=== PATIENT | male | born 1980 | race Caucasian/White ===

== ENCOUNTER 2020-04-01 03:35 | Emergency (ER) | payer OTHER ==
[2020-04-01] MEDS ORDERED: propofoL 0 ML ONE (04:00)
[2020-04-01] MEDS ORDERED: fentaNYL 100 MCG/2 ML SDV ONE ×4 (04:00→04:15)
[2020-04-01] MEDS ORDERED: fentaNYL 2500 MCG/50 ML SDV ONE (04:09)
[2020-04-01] MEDS ORDERED: Sodium Chloride 0.9% 250 ML ONE (04:09)
[2020-04-01] MEDS ORDERED: Etomidate 2 MG/ML 20 ML SDV IVPUSH ONE (04:15)
[2020-04-01] MEDS ORDERED: Succinylcholine 200 MG/10 ML MDV ONE (04:15)
[2020-04-01] MEDS ORDERED: Lidocaine 1% 10 ML MDV ONE (04:15)
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
[2020-04-01] MEDS ORDERED: fentaNYL 2,500 MCG in Sodium Chloride 0.9% 200 ML IV SCH (04:30)
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
[2020-04-01 07:33] VITALS: BP 107/45; PULSE 71
--- NOTE | 2020-04-01 08:28 | CT ---
CT cervical spine Technique: Multiple axial sections were obtained from above C1 inferiorly to the mid T3 level. Reconstructed coronal and sagittal images were obtained. Comparison: No prior cervical spine imaging is available. Findings: Fractures are seen within the base of the spinous process of C6. This fracture extends into the lamina on the left side at this level. Fracture is noted within the base of the spinous process of C7 which extends slightly into the lamina in two places. There is diffuse mucosal thickening within the ethmoid and maxillary sinuses. Endotracheal tube is seen coursing off the inferior edge of the film. On lung window settings there is diffuse increased density within both lungs presumably due to areas of pulmonary contusion. Vertebral body heights are maintained. No bony central or bony neural foraminal stenosis is seen. Slight scoliosis noted on the reconstructed AP view. Impression: 1. Fractures within the base of the spinous process of C6 and C7. Fractures extend into the lamina on the left side at both levels. 2. Diffuse increased density within both upper lung compatible with pulmonary contusions. 3. Other findings as noted above which are nonacute. Diagnostic code #5 I agree with preliminary report from [facility], finalized on 04/01/20, 6:33 AM SPECIALTY FOOD PRODUCTS SUPERVISOR
--- NOTE | 2020-04-01 08:38 | CT ---
CT chest Technique: Multiple axial sections through the chest were obtained. Intravenous contrast was utilized. Reconstructed coronal and sagittal images were obtained. Comparison: No prior chest imaging is available. Findings: Endotracheal tube is seen. Tip lies above the airam. Thoracic aorta shows no aneurysm. Small amount of venous air is noted which is felt to be incidental. Mediastinum shows no adenopathy. No pericardial thickening is seen. Diffuse parenchymal change is noted within both upper lungs and lesser change within both lower lungs as well as within the lingula and right middle lobe. There is a small air cavity being seen within the right middle lobe measuring approximately 1.3 cm in size which is compatible with a small air cyst. No pneumothorax is seen. Small pleural bleb is noted within the right upper chest. No pleural effusions are seen. No definite acute osseous abnormality is appreciated. Impression: 1. Diffuse increased density within both sides of the chest as noted above most likely representing diffuse pulmonary lesions. Satisfactory position of endotracheal tube is noted. 2. Small air cyst within the right middle lobe. 3. Small subpleural bleb within the right lung apex. 4. No findings of pneumothorax or pleural effusion. Diagnostic code #5 I agree with preliminary report from [facility], finalized on 04/01/20, 6:[address] SUPPORT ANALYST CT abdomen and pelvis Technique: Multiple axial sections were obtained from above the dome of the diaphragm inferiorly through the pubic symphysis. Intravenous contrast was utilized. Delayed images were also obtained through the abdomen and pelvis. Reconstructed coronal and sagittal images were obtained. Comparison: No prior abdominal or pelvic CT is available. Findings: Patients arms are below the chest which causes some artifact. Liver shows no focal abnormality. Spleen appears within normal limits. Abdominal aorta shows no aneurysm. Branch vessels of the abdominal aorta show no discrete abnormality and are likely small due to patient's hypotensive nature. Abnormality is noted within the right adrenal gland which is nonspecific but given the patient's age is most likely due to an adrenal adenoma. This measures approximately 3.2 cm in size. Left adrenal gland is normal. Pancreas is within normal limits. There is a full-thickness renal laceration seen within the midpole of the right kidney. There is a mild amount of surrounding blood being seen around the right kidney. Right kidney injury is grade 3. Left kidney is normal. No retroperitoneal adenopathy or mesenteric abnormalities are appreciated. There is a displaced fracture within the shaft of the right femur. Diffuse soft tissue swelling is noted within the right thigh. No pelvic mass or adenopathy is identified. Bone window settings were reviewed and show no definite acute abnormality. Impression: 1. Displaced femoral shaft fracture with diffuse soft tissue swelling within the right thigh. 2. Grade 3 renal laceration within the mid right kidney with a small amount of adjacent hemorrhage being seen around the right kidney. 3. No other acute abnormality is appreciated. Diagnostic code #5 I agree with preliminary report from [facility], finalized on 04/01/20, 6:25 AM SENIOR SUPPORT ANALYST
--- NOTE | 2020-04-01 08:43 | CT ---
CT lumbar spine Technique: Multiple axial sections were obtained through the lumbar spine from above L1 inferiorly through the L5-S1 disc. Findings: Scattered Schmorl node deformities are seen. Most severe disc space narrowing at L5-S1. No fracture is seen within the lumbar spine. Mild degenerative change is noted within the lower apophyseal joints primarily at L4-5 and L5-S1. Posterior spurring noted at L5-S1. L4-5 shows circumferential disc bulge. Minimal circumferential disc bulge at L3-4. Renal injury is again noted on the right side as described on CT abdomen study. Impression: 1. Mild degenerative change as noted above. 2. No acute fracture or abnormal subluxation is seen. Diagnostic code #2 I agree with preliminary report from [facility], finalized on 04/01/20, 6:41 AM MEDICAL FIELD REPRESENTATIVE
--- NOTE | 2020-04-01 08:43 | CT ---
Head CT Technique: Multiple axial sections were obtained through the brain. Intravenous contrast was not utilized. Reconstructed coronal and sagittal images were obtained. Comparison: No prior intracranial imaging is available. Findings: Small focal area of extra-axial hemorrhage is noted anteriorly within the left temporal fossa. This has a thickness of approximately 1.0 cm and right angle measurement about 2.4 cm. This finding is most likely due to small epidural hematoma. There is a small amount of subarachnoid hemorrhage within the left sylvian fissure. Small amount of hemorrhage is also noted extra-axially anterior to the mid brain and anterior upper cervical spine. Soft tissue injury is noted within the right anterior temporal scalp. Soft tissue hematoma is noted within the right lateral scalp as well as soft tissue swelling. There is soft tissue swelling partially seen around the right orbit. Fracture noted within the right zygomatic arch. There is air-fluid levels within the paranasal sinuses as well as diffuse soft tissue density most likely relating to blood. Bone window setting shows a nondisplaced right sided anterior temporal fracture which extends into the skull base within the right temporal floor. Impression: 1. Small hematoma anteriorly within the temporal fossa either due to small epidural hematoma or an oddly shaped subdural hematoma. Fracture is noted within the right temporal region in this area which extends superiorly and inferiorly into the right floor of the temporal bone. 2. Mild subarachnoid hemorrhage within the left sylvian fissure and along the anterior aspect of the midbrain and upper cervical region. 3. Scalp injury and scalp hematoma on the right side. 4. Zygomatic arch fracture. Diagnostic code #5 I agree with preliminary report from [facility], finalized on 04/01/20, 6:14 AM NEURODIAGNOSTIC TECHNICIAN
--- NOTE | 2020-04-01 08:54 | CT ---
CT facial bones Technique: Multiple axial sections through the facial bones were obtained. Reconstructed coronal and sagittal images were obtained. Findings: Soft tissue swelling and soft tissue air is identified lateral to the right orbit. There is a fracture being seen within the anterior and inferior right orbital wall which extends into the inferior orbital floor. Soft tissue density is seen along the inferior orbital floor. No significant displacement is appreciated. Minimal fracture is noted within the nasal septum and within the medial left orbital wall. Minimal fracture is seen within the right cribriform plate. Diffuse soft tissue density is noted within the paranasal sinuses as well as areas of fluid being seen within the paranasal sinuses compatible with blood. Fractures are seen within C6 and C7 as noted on CT cervical spine study. Minimal fracture is seen within the nasal bone Impression: 1. Numerous small fractures as noted above. 2. Diffuse soft tissue density within the paranasal sinuses as well as fluid compatible with hematoma. 3. Other findings as noted on prior CT cervical spine study and head CT study. Diagnostic code #5 I agree with preliminary report from [facility], finalized on 04/01/20, 6:33 AM TAILINGS WORKER
--- NOTE | 2020-04-01 08:57 | CT ---
CT thoracic spine Technique: Multiple axial sections through the thoracic spine were obtained. Reconstructed sagittal and coronal images were obtained. Comparison: No prior thoracic spine imaging is available. Findings: Scattered disc space narrowing is noted within the thoracic spine with small Schmorl's node deformities. No bony central canal stenosis or discrete neural foraminal stenosis is seen. No discrete fracture or abnormal subluxation is seen. Impression: 1. Mild diffuse degenerative change. 2. No acute fracture or abnormal subluxation is seen. Diagnostic code #2 I agree with preliminary report from [facility], finalized on 04/01/20, 6:39 AM DIRECTOR BUSINESS SYSTEMS
== END 2020-04-01 05:10 ==
LOC: JD.ED 03:35
DX: S06.6X9A Traumatic subarachnoid hemorrhage with loss of consciousness of unspecified duration, initial encounter (principal); S02.40EA Zygomatic fracture, right side, initial encounter for closed fracture; S02.19XA Other fracture of base of skull, initial encounter for closed fracture; S12.501A Unspecified nondisplaced fracture of sixth cervical vertebra, initial encounter for closed fracture; S12.601A Unspecified nondisplaced fracture of seventh cervical vertebra, initial encounter for closed fracture; S02.101A Fracture of base of skull, right side, initial encounter for closed fracture; S02.832A Fracture of medial orbital wall, left side, initial encounter for closed fracture; S02.40CA Maxillary fracture, right side, initial encounter for closed fracture; S02.40DA Maxillary fracture, left side, initial encounter for closed fracture; S02.2XXA Fracture of nasal bones, initial encounter for closed fracture; F10.129 Alcohol abuse with intoxication, unspecified; D72.829 Elevated white blood cell count, unspecified; E87.1 Hypo-osmolality and hyponatremia; Y90.7 Blood alcohol level of 200-239 mg/100 ml; V89.2XXA Person injured in unspecified motor-vehicle accident, traffic, initial encounter
CPT/HCPCS: 31500; 36415; 70450; 70486; 71260; 72125; 72128; 72131; 74177; 80053; 80179; 80306; 81001; 83735; 85007; 85027; 85610; 85730; 93005; 99291; 99292; G0390; J0330; J3010; J3490; J7030; J7050; J7120; P9016; 36430; 86850; 86900; 86901; 86922; 93010; P9017